=== PATIENT | male | born 1940 ===

== ENCOUNTER 2021-11-07 08:57 | Inpatient (IN) ==
[2021-11-07] MEDS ORDERED: IOPAMIDOL 100 ML BOTTLE IV ONE (08:58)
[2021-11-07] MEDS ORDERED: IPRATROPIUM/ALBUTEROL 3 ML AMPUL.NEB NEB ONE ×2 (09:07→21:52)
[2021-11-07] MEDS ORDERED: DOXYCYCLINE HYCLATE 100 MG TABLET.ORL PO ONE (09:19)
[2021-11-07] MEDS ORDERED: DEXAMETHASONE 4 MG TABLET PO ONE (09:19)
[2021-11-07] MEDS ORDERED: cefTRIAXone 1 GM VIAL IV ONE (09:19)
--- NOTE | 2021-11-07 09:41 | XRay Report ---
INDICATION: dyspnea TECHNIQUE: AP portable semiupright chest x-ray COMPARISON: None FINDINGS: Lungs:Bilateral pulmonary parenchymal infiltrates. Appearance is nonspecific. This is probably secondary to diffuse pneumonia. Pulmonary hemorrhage, pulmonary edema, ARDS could have this appearance. Heart, vascular:No significant cardiomegaly. Pulmonary vascularity is normal. No pulmonary edema or pulmonary congestion Mediastinum, bobby:No mediastinal widening. No hilar mass Pleura:No pleural fluid. No pleural-based mass or calcification Skeletal:Negative. IMPRESSION: Diffuse pulmonary parenchymal infiltrates Findings are most consistent with pneumonia but appearance is nonspecific Interpreted and Authenticated by: Jose Guadalupe Walter 11/07/21
[2021-11-07 10:02] LABS: Basophils # (Auto) 0.05 K/mcL (0.00-0.30); Basophils % (Auto) 0.4 % (0.0-2.0); Eosinophils # (Auto) 0.13 K/mcL (0.00-0.70); Eosinophils % (Auto) 0.9 % (0.0-7.0); Hematocrit 31.2 % (40.1-51.0); Hemoglobin 10.6 g/dL (13.7-17.5); Lymphocytes # (Auto) 0.69 K/mcL (1.50-4.80); Lymphocytes % (Auto) 4.8 % (15.5-49.0); Mean Cell Volume 95.7 fL (80.0-100.0); Mean Platelet Volume 9.5 fL (7.4-10.4); Monocytes % (Auto) 8.4 % (1.0-12.0); Neutrophils % (Auto) 85.5 % (38.0-78.0); Platelet Count 388 K/mcL (140-440); RBC 3.26 M/mcL (4.63-6.08); Red Cell Distribution Width 14.8 % (11.5-14.5); WBC 14.3 K/mcL (4.5-11.0)
[2021-11-07 10:26] LABS: ALT/SGPT 44 U/L (<40); AST/SGOT 56 U/L (<40); Albumin 3.1 gm/dL (3.2-5.2); Albumin/Globulin Ratio 0.7 (1.0-2.3); Alkaline Phosphatase 267 U/L (39-117); Bilirubin,Total 0.8 mg/dL (0.1-1.0); Blood Urea Nitrogen 18 mg/dL (8-23); Calcium 8.7 mg/dL (8.6-10.4); Carbon Dioxide 21 mmol/L (22-30); Chloride 95 mmol/L (96-108); Globulin 4.3 gm/dL (2.2-3.7); Glomerular Filtration Rate 55; Glucose 145 mg/dL (70-105)
[2021-11-07] MEDS ORDERED: 0.9 % SODIUM CHLORIDE 1,000 ML IV ONE (10:29)
[2021-11-07 11:01] LABS: INR 1.7 (0.9-1.1); Partial Thromboplastin Time 51.9 sec (20.0-37.0); Prothrombin Time 20.9 sec (11.9-14.5)
[2021-11-07] MEDS ORDERED: ONDANSETRON 4 MG/2 ML VIAL IV ONE (11:03)
--- NOTE | 2021-11-07 11:35 | Internal Med History&Physical ---
HPI History of Present Illness Patient information: Note initiated : 11/07/21 at 11:29 am Service Date, if different from initiated Date: [] Patient: Bg Maxwell a 81 y/o M admitted on for shortness of breath x 1 month, hypoxia. Chief Complaint: [SOB] Chief complaint: SOB History of present illness: Mr. Maxwell is a 81 year old M with a past medical history significant for CAD, and TAVR who presents to the hospital with progressive dyspnea. The patient states that he drove up from [place] for the last 48 hours. He has been home for 3 days and is staying with his sister locally. The patient states that he has been feeling unwell for nearly 1 month. He denies any sick contacts or recent air travel. He is vaccinated and his rapid COVID test was initially negative. The patient denies any fevers, chills, or chest pain. On arrival, he was hemodynamically stable and afebrile however hypoxemic with an O2 sat of 87 to 88%. He was requiring 5 L of supplemental O2 initially however had an aspiration event per my discussion with RN and the now is requiring 10 L. The hospitalist service was asked admit the patient for further management and evaluation of his acute hypoxemic respiratory failure. Review of Systems All systems: reviewed and no additional remarkable complaints except as stated Constitutional Constitutional: Present as per HPI EENT Eyes: Present as per HPI; Absent blurry vision Cardiovascular Cardiovascular: Present as per HPI; Absent chest pain, dyspnea, dyspnea on exertion, leg edema or palpatations Respiratory Respiratory: Present as per HPI, cough, dyspnea and dyspnea on exertion; Absent wheezing or stridor Gastrointestinal Gastrointestinal: Present as per HPI; Absent abdominal pain, diarrhea, dysphagia, hematemesis, melena, nausea or vomiting Musculoskeletal Musculoskeletal: Present as per HPI; Absent joint swelling, limited range of motion, muscle cramps, muscle weakness or myalgias Integumentary Integumentary: Present as per HPI; Absent erythema, new lesions, rash or wounds Neurological Neurological: Present as per HPI; Absent abnormal gait, behavioral changes, focal weakness, headache(s), loss of vision, numbness, sensory deficit or syncope Endocrine Endocrine: Absent change in body appearance, fatigue or heat intolerance Hematologic/Lymphatic Hematologic/Lymphatic: Present as per HPI PFSH PFSH All Active Problems (Updated 06/07/22 @ 11:32 by Alaina Davis MD) Bilateral pneumonia (Acute) Acute hypoxemic respiratory failure (Acute) Sepsis (Acute) MEDS/ALLERGIES Home Medications and Allergies Allergies Allergy/AdvReac Type Severity Reaction Status Date / Time No Known Drug Allergies Allergy Verified 11/07/21 09:00 EXAM Constitutional Vitals: Temp Pulse Resp BP Pulse Ox 97.7 F 87 15 164/66 89 L 11/07/21 08:58 11/07/21 11:10 11/07/21 11:10 11/07/21 11:02 11/07/21 11:10 General appearance: average body habitus Head Head exam: Present atraumatic, normal inspection and normocephalic Eye Eye exam: Present EOMI, normal appearance and PERRL; Absent conjunctival injection ENT ENT exam: Present normal exam; Absent mucous membranes dry Neck Neck exam: Present full ROM; Absent lymphadenopathy Respiratory Respiratory exam: Present decreased breath sounds and rhonchi; Absent CTAB, respiratory distress or wheezes Cardiovascular Cardiovascular exam: Present normal rate and rhythm and RRR; Absent JVD GI/Abdominal GI/Abdominal exam: Present normal bowel sounds and soft; Absent diminished bowel sounds, distended, guarding, mass, rebound or tenderness Neurological Exam Neurological exam: Present alert, CN II-XII intact and oriented X3 Psychiatric Psychiatric exam: Present normal affect and normal mood Skin Skin exam: Present intact and warm; Absent erythema, pallor, petechiae or rash DATA Data Completed and Pending Labs: Labs from last 24 hours 11/07/21 11/07/21 11/07/21 09:14 09:10 09:10 WBC RBC Hgb Hct MCV MCH MCHC RDW Plt Count MPV Neut % (Auto) Lymph % (Auto) [place] % (Auto) Eos % (Auto) Baso % (Auto) Lymph # (Auto) [place] # (Auto) Eos # (Auto) Baso # (Auto) Absolute Neutrophils PT INR APTT Sodium 130 L Potassium 4.2 Chloride 95 L Carbon Dioxide 21 L Anion Gap 14.0 BUN 18 Creatinine 1.2 GFR Calculation 55 Glucose 145 H Calcium 8.7 Total Bilirubin 0.8 AST 56 H ALT 44 H Alkaline Phosphatase 267 H Total Protein 7.4 Albumin 3.1 L Globulin 4.3 H Albumin/Globulin Ratio 0.7 L Procalcitonin 0.13 H POC Troponin I 0.05 11/07/21 11/07/21 09:10 09:10 WBC 14.3 H RBC 3.26 L Hgb 10.6 L Hct 31.2 L MCV 95.7 MCH 32.5 MCHC 34.0 RDW 14.8 H Plt Count 388 MPV 9.5 Neut % (Auto) 85.5 H Lymph % (Auto) 4.8 L [place] % (Auto) 8.4 Eos % (Auto) 0.9 Baso % (Auto) 0.4 Lymph # (Auto) 0.69 L [place] # (Auto) 1.20 H Eos # (Auto) 0.13 Baso # (Auto) 0.05 Absolute Neutrophils 12.18 H PT 20.9 H INR 1.7 H APTT 51.9 H Sodium Potassium Chloride Carbon Dioxide Anion Gap BUN Creatinine GFR Calculation Glucose Calcium Total Bilirubin AST ALT Alkaline Phosphatase Total Protein Albumin Globulin Albumin/Globulin Ratio Procalcitonin POC Troponin I A/P Assessment and plan (1) Sepsis: Status: Acute (2) Acute hypoxemic respiratory failure: Status: Acute (3) Bilateral pneumonia: Assessment and plan: The patient was recently on a long car drive and VTE is definitely on the differential. His JVD is slightly elevated and there is decreased bibasilar lung lung sounds on auscultation. At this point the differential includes respiratory versus cardiac. Plan: #Acute hypoxemic respiratory failure -2/2 shunting -DDx: space -Investigations: CTpA, TTE, ABG -Tx: duonebs, pulmnicort, IS, supplemental O2 -Monitor O2 sat for goal >92% #Bilateral pneumonia -The patient appears diaphoretic, with an eleaveted WBC of 14,000 -DDx: viral vs bacterial vs fungal (from [place]) -Investigations: as above, coccidoies IgM -Tx: CTX/zithromax #FEN -IV saline lock, monitor and replete lytes, NPO #DVT ppx -HSQ Status: Acute Time Spent With Patient Time: Total time spent is greater than 50% in coordination of care (as documented) at patient's floor/unit and/or counseling patient: Total time spent with greater than 50% in coordination of care (as documented) at patient's floor/unit and/or counseling patient:: 50 - 70 minutes
--- NOTE | 2021-11-07 12:07 | Emergency Department Note ---
HPI General Chief complaint: Shortness of Breath/Dyspnea Stated complaint: shortness of breath x 1 month, hypoxia Time Seen by Provider: 11/07/21 09:07 Source: patient Mode of arrival: wheelchair Limitations: no limitations History of Present Illness HPI Narrative: Narrative: 81-year-old male with history of aortic stenosis post TAVR, no other significant known medical problems presents for evaluation of about 1 month of worsening shortness of breath associated with productive cough. He denies any fever chills or body aches. He denies abdominal pain or nausea. He reports symptoms have been generalized and progressive. He denies any chest pain or pressure. Related Data Allergies Allergy/AdvReac Type Severity Reaction Status Date / Time No Known Drug Allergies Allergy Verified 11/07/21 09:00 Review of Systems ROS ROS Narrative: Narrative: All systems ED: reviewed and negative except as stated. PFSH Narrative Patient History Narrative: Narrative: Medical/Surgical/Family History All Active Problems (Updated 11/07/21 @ 12:14 by Yong Hyatt DO) Bilateral pneumonia (Acute) Acute hypoxemic respiratory failure (Acute) Sepsis (Acute) Social History Smoking Status: Never smoker Exam Narrative Narrative: Narrative: General Limitations: no limitations General appearance: Present alert and in no apparent distress Head Head: Present atraumatic and normocephalic Eye Eye: Present normal appearance and EOMI ENT ENT: Present normal exam and mucous membranes moist Neck Neck: Present normal inspection and full ROM Chest Chest: Present normal inspection and symmetric chest wall rise Respiratory Respiratory: Present other (Scattered rhonchi especially in the right, requiring 5 L nasal cannula to maintain oxygenation, appears to be breathing comfortably); Absent respiratory distress Cardiovascular Cardiovascular: Present regular rate and normal rhythm Adbominal Abdominal: Present soft; Absent tenderness Extremities Extremities: Present normal inspection and full ROM Neurological Neurological: Present alert, oriented X3 and normal gait Psychiatric Psychiatric: Present normal affect and normal mood Skin Skin: Present warm (WNL), dry and normal color Course Vital Signs Vital signs: Vital Signs Temperature 97.7 F 11/07/21 08:58 Pulse Rate 86 11/07/21 08:58 Respiratory Rate 26 H 11/07/21 08:58 Blood Pressure 130/62 11/07/21 08:58 Pulse Oximetry (%) 75 L 11/07/21 08:58 Temperature 97.7 F 11/07/21 08:58 Pulse Rate 79 11/07/21 11:49 Respiratory Rate 14 11/07/21 11:34 Blood Pressure 160/104 11/07/21 11:32 Pulse Oximetry (%) 95 11/07/21 11:49 MDM MDM Narrative Medical decision making narrative: Narrative: Patient with acute hypoxic respiratory failure. He was placed on nasal cannula immediately on arrival with improvement in his oxygen saturation x-ray confirmed pneumonia, he was given IV antibiotics. Is given a dose of steroids pending COVID testing which resulted negative but onset of symptoms was about a month ago so PCR was sent as well. Influenza was positive, but again his symptoms been ongoing for about a month and he has not had generalized viral symptoms. It is possible that this post viral pneumonia with elevated procalcitonin. He was admitted for further care Lab Data Lab results reviewed: Yes I reviewed the patient's lab results. Result diagrams: 11/07/21 09:10 11/07/21 09:10 Labs: Lab Results 11/07/21 11/07/21 11/07/21 Range/Units 09:10 09:10 09:10 WBC 14.3 H (4.5-11.0) K/mcL RBC 3.26 L (4.63-6.08) M/mcL Hgb 10.6 L (13.7-17.5) g/dL Hct 31.2 L (40.1-51.0) % MCV 95.7 (80.0-100.0) fL MCH 32.5 (26.0-34.0) pg MCHC 34.0 (31.0-36.0) g/dL RDW 14.8 H (11.5-14.5) % Plt Count 388 (140-440) K/mcL MPV 9.5 (7.4-10.4) fL Neut % (Auto) 85.5 H (38.0-78.0) % Lymph % (Auto) 4.8 L (15.5-49.0) % Stephenson % (Auto) 8.4 (1.0-12.0) % Eos % (Auto) 0.9 (0.0-7.0) % Baso % (Auto) 0.4 (0.0-2.0) % Lymph # (Auto) 0.69 L (1.50-4.80) K/mcL Stephenson # (Auto) 1.20 H (0.10-0.90) K/mcL Eos # (Auto) 0.13 (0.00-0.70) K/mcL Baso # (Auto) 0.05 (0.00-0.30) K/mcL Absolute Neutrophils 12.18 H (1.80-8.00) K/mcL PT 20.9 H (11.9-14.5) sec INR 1.7 H (0.9-1.1) APTT 51.9 H (20.0-37.0) sec Sodium 130 L (133-145) mmol/L Potassium 4.2 (3.3-5.1) mmol/L Chloride 95 L (96-108) mmol/L Carbon Dioxide 21 L (22-30) mmol/L Anion Gap 14.0 (8.0-16.0) BUN 18 (8-23) mg/dL Creatinine 1.2 (0.7-1.2) mg/dL GFR Calculation 55 Glucose 145 H (70-105) mg/dL Calcium 8.7 (8.6-10.4) mg/dL Total Bilirubin 0.8 (0.1-1.0) mg/dL AST 56 H (<40) U/L ALT 44 H (<40) U/L Alkaline Phosphatase 267 H (39-117) U/L Total Protein 7.4 (5.9-8.4) gm/dL Albumin 3.1 L (3.2-5.2) gm/dL Globulin 4.3 H (2.2-3.7) gm/dL Albumin/Globulin Ratio 0.7 L (1.0-2.3) Procalcitonin (<0.10) ng/mL POC Troponin I (0.02-0.08) 11/07/21 11/07/21 Range/Units 09:10 09:14 WBC (4.5-11.0) K/mcL RBC (4.63-6.08) M/mcL Hgb (13.7-17.5) g/dL Hct (40.1-51.0) % MCV (80.0-100.0) fL MCH (26.0-34.0) pg MCHC (31.0-36.0) g/dL RDW (11.5-14.5) % Plt Count (140-440) K/mcL MPV (7.4-10.4) fL Neut % (Auto) (38.0-78.0) % Lymph % (Auto) (15.5-49.0) % Stephenson % (Auto) (1.0-12.0) % Eos % (Auto) (0.0-7.0) % Baso % (Auto) (0.0-2.0) % Lymph # (Auto) (1.50-4.80) K/mcL Stephenson # (Auto) (0.10-0.90) K/mcL Eos # (Auto) (0.00-0.70) K/mcL Baso # (Auto) (0.00-0.30) K/mcL Absolute Neutrophils (1.80-8.00) K/mcL PT (11.9-14.5) sec INR (0.9-1.1) APTT (20.0-37.0) sec Sodium (133-145) mmol/L Potassium (3.3-5.1) mmol/L Chloride (96-108) mmol/L Carbon Dioxide (22-30) mmol/L Anion Gap (8.0-16.0) BUN (8-23) mg/dL Creatinine (0.7-1.2) mg/dL GFR Calculation Glucose (70-105) mg/dL Calcium (8.6-10.4) mg/dL Total Bilirubin (0.1-1.0) mg/dL AST (<40) U/L ALT (<40) U/L Alkaline Phosphatase (39-117) U/L Total Protein (5.9-8.4) gm/dL Albumin (3.2-5.2) gm/dL Globulin (2.2-3.7) gm/dL Albumin/Globulin Ratio (1.0-2.3) Procalcitonin 0.13 H (<0.10) ng/mL POC Troponin I 0.05 (0.02-0.08) ED POC Tests ED POC Tests: DERRELL - Influenza A Positive DERRELL - Influenza B Negative DERRELL - SARS Antigen Negative EKG Data EKG #1: EKG attestation: Yes I reviewed and interpreted this EKG. EKG results narrative: Sinus rhythm at a rate of 78. Right axis. QTC 507. Right bundle branch block morphology. Appropriate ST discordance. No acute appearing ST-T changes. Borderline EKG. CC TIME Critical Care Time Critical Care Time: Yes Attestation: Approximately 30 minutes of critical care time was used in order to assess and manage the high probability of imminent or life threatening deterioration to pneumonia with acute hypoxic respiratory failure which required my highest level of preparedness and interventions with frequent patient assessments. This time is excluding time spent on separately billable procedures. Discharge Plan Patient/Caregiver Discharge Instructions Pt seen by [employer]/PA only: No Clinical Impression: Acute hypoxemic respiratory failure, Bilateral pneumonia Patient Disposition: Xfer As Inpt ([facility]) Condition: Fair Follow up with: Provider,Other [Primary Care Provider] -
[2021-11-07] MEDS ORDERED: SENNOSIDES 1 TABLET PO PRN (12:21)
[2021-11-07] MEDS ORDERED: cefTRIAXone 1 GM in DEXTROSE 5% IN WATER 50 ML IV SCH (12:21)
[2021-11-07] MEDS ORDERED: LACTULOSE 20 GM/30 ML ORAL.SOL PO PRN (12:21)
[2021-11-07] MEDS ORDERED: ONDANSETRON 4 MG/2 ML VIAL IV PRN (12:21)
[2021-11-07] MEDS ORDERED: ACETAMINOPHEN 325 MG TABLET PO PRN (12:21)
--- NOTE | 2021-11-07 12:29 | Cat Scan Report ---
INDICATION: Resp failure, ?PE COMPARISON: Previous chest x-ray dated 11/07/2021 TECHNIQUE: Axial images obtained through the chest. 50ml Isovue 370 injected intravenously, and scanning was performed during pulmonary arterial phase. Sagittally and coronally reformatted images were obtained. MIP reformatted images. FINDINGS: Lungs:Diffusely abnormal lungs with bilateral pulmonary parenchymal infiltrates. Infiltrates are slightly worse on the right than the left. There is ground glass infiltrate with particular abnormality. Appearance is nonspecific. Findings may be due to diffuse pneumonia. Pulmonary edema, hemorrhage, or ARDS are possible. Mediastinum, vascular:Main pulmonary artery, right pulmonary artery, left pulmonary artery are negative. No intraluminal filling defects. No lobar, segmental, or subsegmental emboli. Main pulmonary artery measures 3.0 cm in cross-sectional diameter consistent with pulmonary arterial hypertension There is a stent in the left ventricular outflow track and proximal aorta. Is no dissection. No aneurysmal dilatation. There is nonspecific mediastinal and bilateral hilar adenopathy Heart:There is mild cardiomegaly. No pericardial fluid. There is no reflux of contrast material into the inferior vena cava or hepatic veins Pleura:Small right pleural effusion Axilla, supraclavicular regions, chest wall:No pathologic axillary or supraclavicular adenopathy. Musculoskeletal:Negative thoracic spine. No compression fracture. No lytic lesion. No rib or sternal lesions Upper Abdomen:Severe atherosclerotic calcification the proximal abdominal aorta and at the base of the celiac trunk and superior mesenteric artery. 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 There is distal opacification. IMPRESSION: 1. Negative pulmonary CTA 2. Severe bilateral pulmonary parenchymal infiltrates. Appearance is consistent with pneumonia. Pulmonary edema or hemorrhage are possible. ARDS is possible The exam was performed using radiation dose optimization techniques including, but not limited to, automated exposure control, adjustment of the mA and/or kV according to patient size and use of iterative reconstruction technique. Interpreted and Authenticated by: Jose Guadalupe Walter 11/07/21
[2021-11-07] MEDS: IPRATROPIUM/ALBUTEROL 3 ML AMPUL.NEB NEB SCH ×2 (13:05→19:27)
[2021-11-07] MEDS: AZITHROMYCIN 500 MG in DEXTROSE 5% IN WATER 250 ML IV SCH (13:17)
[2021-11-07] MEDS: 0.9 % SODIUM CHLORIDE 10 ML SYRINGE IV SCH ×2 (13:25→20:59)
[2021-11-07] MEDS ORDERED: RIVAROXABAN 20 MG TABLET PO SCH (20:00)
[2021-11-07] MEDS: DOCUSATE SODIUM 100 MG CAPSULE PO SCH (20:59)
[2021-11-07] MEDS ORDERED: ATORVASTATIN 40 MG TABLET PO SCH (21:00)
[2021-11-07] MEDS ORDERED: MELATONIN 3 MG TABLET PO PRN ×2 (21:07→21:11)
[2021-11-07] MEDS ORDERED: IPRATROPIUM/ALBUTEROL 3 ML AMPUL.NEB NEB PRN (21:41)
[2021-11-08] MEDS: IPRATROPIUM/ALBUTEROL 3 ML AMPUL.NEB NEB SCH ×3 (00:37→12:23)
[2021-11-08] MEDS: 0.9 % SODIUM CHLORIDE 10 ML SYRINGE IV SCH (05:36)
[2021-11-08 06:50] LABS: Hematocrit 28.9 % (40.1-51.0); Hemoglobin 9.7 g/dL (13.7-17.5); Mean Cell Volume 96.3 fL (80.0-100.0); Mean Corpuscular HGB Conc 33.6 g/dL (31.0-36.0); Mean Platelet Volume 9.3 fL (7.4-10.4); Platelet Count 336 K/mcL (140-440); Red Cell Distribution Width 14.6 % (11.5-14.5); WBC 20.9 K/mcL (4.5-11.0)
[2021-11-08 07:23] LABS: Blood Urea Nitrogen 22 mg/dL (8-23); Calcium 8.7 mg/dL (8.6-10.4); Carbon Dioxide 19 mmol/L (22-30); Chloride 88 mmol/L (96-108); Glomerular Filtration Rate 69; Glucose 156 mg/dL (70-105)
[2021-11-08] MEDS ORDERED: AMIODARONE HCL 200 MG TABLET PO SCH (08:00)
[2021-11-08] MEDS ORDERED: RIVAROXABAN 20 MG TABLET PO SCH (08:00)
[2021-11-08] MEDS ORDERED: ENOXAPARIN 40 MG/0.4 ML SYRINGE SQ SCH (09:00)
[2021-11-08] MEDS ORDERED: FUROSEMIDE 100 MG/10 ML VIAL IV SCH (09:00)
[2021-11-08] MEDS ORDERED: BUDESONIDE 0.5 MG/2 ML AMPUL.NEB NEB SCH (09:00)
[2021-11-08] MEDS ORDERED: cefTRIAXone 1 GM VIAL IV SCH (09:00)
[2021-11-08] MEDS: DOCUSATE SODIUM 100 MG CAPSULE PO SCH (09:55)
[2021-11-08] MEDS: AZITHROMYCIN 500 MG in DEXTROSE 5% IN WATER 250 ML IV SCH (09:58)
[2021-11-08 10:12] LABS: ABG Methemoglobin 0.2 % (0.4-1.5); VBG Base Excess -3 (-2-3); VBG HCO3 21.5 mmol/L (24.0-28.0); VBG Oxygen Saturation 83.8 % (40.0-70.0); VBG PCO2 34.7 mmHg (41.0-51.0); VBG PH 7.41 U (7.32-7.42); VBG PO2 55.7 mmHg (25.0-40.0); VBG Total CO2 22.5 mmol/L (25.0-29.0)
[2021-11-08 10:40] LABS: Lymphocytes % 3 % (15-49); Monocytes % (Manual) 11 % (1-12); Platelet Estimate NORMAL (Normal); RBC Morphology NORMAL (Normal); Segmented Neutrophils % 86 % (38-78)
[2021-11-08 11:38] LABS: ABG Methemoglobin 0.1 % (0.4-1.5); Total Hemoglobin 12.3 gm/Dl (13.5-16.5); VBG Base Excess 0 (-2-3); VBG HCO3 22.8 mmol/L (24.0-28.0); VBG Oxygen Saturation 91.9 % (40.0-70.0); VBG PCO2 32.2 mmHg (41.0-51.0); VBG PH 7.47 U (7.32-7.42); VBG PO2 126.9 mmHg (25.0-40.0); VBG Total CO2 23.8 mmol/L (25.0-29.0)
--- NOTE | 2021-11-08 13:08 | Discharge Summary ---
Discharge Provider Provider IMPORTANT FOLLOW-UP INFORMATION FOR PCP: Patient information: Note initiated : 11/08/21 at 1:07 pm Service Date, if different from initiated Date: [as above] Patient: Bg Maxwell 81 y/o M admitted on 11/07/21 for shortness of breath x 1 month, hypoxia. Chief Complaint: [SOB] Date of admission: 11/07/21 12:18 Discharge date: 11/08/21 Primary care physician: Other Provider Admitting clinician: Alaina Davis Consults: 11/07/21 Consult to Physician [CONS] Stat Comment: Consulting Provider: Alaina Davis Reason For Exam: Physician to Consult Discharging clinician: Alaina Davis COURSE Hospital Course Hospital course: Mr. Maxwell is a 81 year old M with a past medical history significant for CAD, and TAVR who presents to the hospital with progressive dyspnea. The patient states that he drove up from [place] [employer] for the last 48 hours. He has been home for 3 days and is staying with his sister locally. The patient states that he has been feeling unwell for nearly 1 month. He denies any sick contacts or recent air travel. He is vaccinated and his rapid COVID test was initially negative. The patient denies any fevers, chills, or chest pain. On arrival, he was hemodynamically stable and afebrile however hypoxemic with an O2 sat of 87 to 88%. He was requiring 5 L of supplemental O2 initially however had an aspiration event per my discussion with RN and the now is requiring 10 L. The hospitalist service was asked admit the patient for further management and evaluation of his acute hypoxemic respiratory failure. Over the last 24 hours, the patient's oxygenation requirements continued to deteriorate. He did not sleep overnight due to increased work of breathing. He required high flow which was uptitrated to 50 L of flow and 100% FiO2. At this point, he was transition to positive pressure ventilation and we were considering the 60 BiPAP with AVAPS but instead he was placed on CPAP which relieved some of his work of breathing. Of note he is DNR/DNI. CTA chest was negative for PE and his respiratory panel was negative including negative SARS COVID-19. The etiology for his ARDS is unclear but suspected to be bacterial pneumonia. Coccidiomycosis is pending as he does come from [place]. The patient's white blood cell count is up to 20,000. He will be transferred to higher level of care with infectious disease, and pulmonary/ICU. He may benefit from bronchoscopy with BAL. Discharge diagnosis: Acute hypoxemic respiratory failure, ARDS Time spent discussing smoking cessation with patient: more than 10 minutes Time Spent with Patient Time attestation: Total time spent providing and/or coordinating discharge services: Time spent: Greater than 30 minutes EXAM Constitutional Vitals: Temp Pulse Resp BP Pulse Ox 97.2 F 80 21 169/98 95 11/08/21 12:04 11/08/21 12:27 11/08/21 12:27 11/08/21 12:04 11/08/21 12:27 General appearance: mild distress Head Head exam: Present atraumatic and normal inspection Additional comments: CPAP mask Eye Eye exam: Present PERRL ENT ENT exam: Present mucous membranes dry Expanded Neck Exam Neck exam: Absent anterior neck swelling Respiratory Respiratory exam: Present decreased breath sounds, prolonged expiratory phase and respiratory distress Expanded Respiratory Exam Location: decreased breath sounds: Left and Right and rales: Left and Right Cardiovascular Cardiovascular exam: Present normal rate and rhythm and RRR GI/Abdominal GI/Abdominal exam: Present soft; Absent distended or tenderness Back Exam Back exam: Absent CVA tenderness (L) Neurological Exam Neurological exam: Present alert and oriented X3 Psychiatric Psychiatric exam: Present normal affect; Absent agitated, anxious or flat affect Discharge Data Data Completed and Pending Labs on day of discharge: Labs from last 24 hours 11/08/21 11/08/21 11/08/21 10:49 09:17 05:55 WBC RBC Hgb Hct MCV MCH MCHC RDW Plt Count MPV Seg Neutrophils % Lymphocytes % Monocytes % (Manual) Platelet Estimate RBC Morphology ABG Methemoglobin 0.1 L 0.2 L VBG pH 7.47 H 7.41 VBG pCO2 32.2 L 34.7 L VBG pO2 126.9 H 55.7 H VBG HCO3 22.8 L 21.5 L VBG Total CO2 23.8 L 22.5 L VBG O2 Saturation 91.9 H 83.8 H VBG Base Excess 0 -3 L Carboxyhemoglobin 6.4 H 5.6 H Total Hemoglobin 12.3 L 11.0 L Sodium 121 L Potassium 4.4 Chloride 88 L Carbon Dioxide 19 L Anion Gap 14.0 BUN 22 Creatinine 1.0 GFR Calculation 69 Glucose 156 H Calcium 8.7 11/08/21 05:55 WBC 20.9 H RBC 3.00 L Hgb 9.7 L Hct 28.9 L MCV 96.3 MCH 32.3 MCHC 33.6 RDW 14.6 H Plt Count 336 MPV 9.3 Seg Neutrophils % 86 H Lymphocytes % 3 L Monocytes % (Manual) 11 Platelet Estimate Normal RBC Morphology Normal ABG Methemoglobin VBG pH VBG pCO2 VBG pO2 VBG HCO3 VBG Total CO2 VBG O2 Saturation VBG Base Excess Carboxyhemoglobin Total Hemoglobin Sodium Potassium Chloride Carbon Dioxide Anion Gap BUN Creatinine GFR Calculation Glucose Calcium Preliminary micro results at discharge 11/07/21 12:22 Blood Culture - Preliminary Blood 11/07/21 12:15 Blood Culture - Preliminary Blood Discharge Plan Patient/Caregiver Discharge Instructions Diet: NPO Prescriptions: No Action atorvastatin 40 mg Tablet 40 mg PO HS 0RF doxazosin 1 mg Tablet 1 mg PO DAILY 0RF amiodarone 200 mg Tablet 200 mg PO DAILY 0RF diltiazem HCl 360 mg Capsule,Extended Release 24hr 360 mg PO DAILY 0RF losartan 100 mg Tablet 100 mg PO DAILY 0RF dutasteride 0.5 mg Capsule 0.5 mg PO DAILY 0RF Xarelto 20 mg Tablet 20 mg PO DAILY 0RF Follow Up Plan Follow up with: Provider,Other [Primary Care Provider] - Patient Disposition: [facility] Inpt ([facility]) Prognosis: Fair Rehab Potential: Critical Discharge Orders: Discharge Order (Routine); Ordered 11/08/21 Ordered By: Alaina BERTRAND VTE Deep Vein Thrombosis/Pulmonary Embolism Present on Admission: No
--- NOTE | 2021-11-09 12:32 | EKG ---
[facility] Test Date: 2021-11-07 Pat Name: Bg Maxwell Department: ED Room: Gender: Male Bilingual Administrative Assistant: AW : [id number] Requested By: Yong Hyatt Order Number: [id number] Reading MD: Saurabh Hoskins Measurements Intervals [place] Rate: 78 P: 72 IN: 215 QRS: 92 QRSD: 140 T: 1 QT: 445 QTc: 507 Interpretive Statements Sinus rhythm Borderline prolonged IN interval RBBB Electronically Signed On 11-09-2021 12:32:01 PDT by Saurabh Hoskins /store/[email or web address]/[id number]
== END 2021-11-08 14:06 | disposition short-term general hospital (02) | DRG 871 ==
LOC: ED 08:57 → ICU 12:18
PROVIDERS: ADMIT Student in an Organized Health Care Education/Training Program; ATTEND Student in an Organized Health Care Education/Training Program